=== PATIENT | female | born 1995 | race African-American/Black ===

== ENCOUNTER 2021-10-08 11:57 | Emergency (ER) | payer SELFPAY ==
[2021-10-08 12:23] VITALS: BP 126/83; PULSE 70; TEMP 98.3; BMI 31.3
[2021-10-08] MEDS ORDERED: IBUPROFEN 600 MG TABLET (FP) PO ONE ×2 (12:42→13:36)
== END 2021-10-08 13:45 | disposition home or self-care (01) ==
LOC: JERFT 11:57
DX: M25.531 Pain in right wrist (principal); M25.532 Pain in left wrist; M54.50 Low back pain, unspecified; W22.09XA Striking against other stationary object, initial encounter; Y04.2XXA Assault by strike against or bumped into by another person, initial encounter
CPT/HCPCS: 72100-TC-FY; 73090-TC-RT-FY; 73110-TC-LT-FY; 73110-TC-RT-FY; 73130-TC-LT-FY; 73130-TC-RT-FY; 73140-TC-LT-FY; 99285-25

== ENCOUNTER 2021-12-13 21:19 | Emergency (ER) | payer OTHER ==
[2021-12-13 21:29] VITALS: BP 128/84; PULSE 99; TEMP 97.9; BMI 35.4
[2021-12-13] MEDS ORDERED: KETOROLAC TROMETHAMINE 30 MG/1 ML VIAL IM ONE (21:39)
[2021-12-13] MEDS ORDERED: KETOROLAC TROMETHAMINE 30 MG/1 ML VIAL ONE (21:52)
== END 2021-12-13 22:14 | disposition home or self-care (01) ==
LOC: JER 21:19 → JERFT 21:19
PROC: 3E023GC Introduction of Other Therapeutic Substance into Muscle, Percutaneous Approach (ICD-10-PCS; principal; 2021-12-13)
DX: S69.91XA Unspecified injury of right wrist, hand and finger(s), initial encounter (principal); W19.XXXA Unspecified fall, initial encounter
CPT/HCPCS: 73130-TC-RT-FY; 99284-25

== ENCOUNTER 2022-02-19 17:51 | Emergency (ER) | payer OTHER ==
[2022-02-19 18:13] VITALS: BMI 33.6
[2022-02-19 20:04] VITALS: BP 127/86; PULSE 89; TEMP 98.9
== END 2022-02-19 21:42 | disposition home or self-care (01) ==
LOC: JER 17:51
DX: J02.9 Acute pharyngitis, unspecified (principal)
CPT/HCPCS: 87651; 99283-25